=== PATIENT | male | born 1975 | race Two or more races ===

== ENCOUNTER 2016-11-12 13:13 | Inpatient (IN) | payer MEDICAID ==
[~2016-11-12] VITALS: Ht 167.6 cm; Wt 62.6 kg
[2016-11-12] MEDS ORDERED: SODIUM CHLORIDE 0.9% 1,000 ML IV ONE ×2 (13:49→17:00)
[2016-11-12] MEDS ORDERED: THIAMINE HCL 100 MG in SODIUM CHLORIDE 0.9% 49 ML IV ONE (14:00)
[2016-11-12] MEDS ORDERED: LORAZEPAM 2MG/ML CPJ IV ONE ×2 (14:00→21:00)
[2016-11-12 14:29] LABS: INR 1.1; PROTHROMBIN TIME 11.3 sec (9.4-11.6)
[2016-11-12 14:31] LABS: AMMONIA 91 uMol/L (<32)
[2016-11-12 14:37] LABS: CARBON DIOXIDE 16 mEq/L (21-32); CHLORIDE 104 mEq/L (98-107); ETHANOL BLOOD < 10 mg/dL; TROPONIN I < 0.02 ng/mL (0.00-0.04)
[2016-11-12 14:57] LABS: CARBAMAZEPINE < 0.5 ug/mL (4-12); PHENOBARBITAL < 2.1 ug/mL (15.0-40.0)
[2016-11-12 15:05] LABS: BASOPHILS % 2.4 % (0.0-2.0); EOSINOPHILS % 0.2 % (0.0-5.0); HEMATOCRIT. 41.2 % (42.0-52.0); HEMOGLOBIN. 13.3 g/dL (14.0-18.0); LYMPHOCYTES % 12.1 % (20.0-50.0); MEAN CORPUSCULAR HEMOGLOBIN 31.1 pg (28.0-32.0); MEAN CORPUSCULAR VOLUME 96.5 fL (80.0-94.0); MEAN PLATELET VOLUME 7.8 fl (7.4-10.4); MONOCYTES % 6.5 % (2.0-8.0); NEUTROPHILS % 78.8 % (40.0-76.0); PLATELET 262 x1000/uL (130-400); RED BLOOD CELL COUNT 4.28 mill/uL (4.7-6.1); RED CELL DISTRIBUTION WIDTH 15.1 % (11.6-14.6)
[2016-11-12 16:37] LABS: CLARITY URINE CLEAR (CLEAR); COLOR URINE YELLOW (YELLOW); GLUCOSE URINE NEGATIVE (NEGATIVE); KETONES URINE NEGATIVE (NEGATIVE); LEUKOCYTE ESTERASE URINE NEGATIVE (NEGATIVE); NITRITE URINE NEGATIVE (NEGATIVE); OCCULT BLOOD URINE 1+ (NEGATIVE); PROTEIN URINE 2+ (NEGATIVE); SPECIFIC GRAVITY URINE 1.022 (1.005-1.030); UROBILINOGEN URINE 0.2 E.U./dL (0.2-1.0)
[2016-11-12 16:49] LABS: *AMPHETAMINES SCREEN URINE NEGATIVE (NEGATIVE); *BARBITURATES SCREEN URINE NEGATIVE (NEGATIVE); *BENZODIAZEPINES SCREEN URINE NEGATIVE (NEGATIVE); *COCAINE SCREEN URINE NEGATIVE (NEGATIVE); CANNABINOID URINE SCREEN NEGATIVE (NEGATIVE); METHADONE URINE SCREEN NEGATIVE (NEGATIVE); OPIATES URINE SCREEN NEGATIVE (NEGATIVE); PHENCYCLIDINE URINE SCREEN NEGATIVE (NEGATIVE)
[2016-11-12] MEDS ORDERED: LACTULOSE 20G/30ML UDC PO ONE (17:00)
[2016-11-12] MEDS ORDERED: SODIUM CHLORIDE 0.9% 1,000 ML IV SCH (18:51)
[2016-11-12] MEDS ORDERED: IBUPROFEN 600MG TABLET PO PRN (19:00)
[2016-11-12] MEDS ORDERED: MAGNESIUM/ALUMINUM HYDROXIDE/SIMETHICONE 30ML UDC PO PRN (19:15)
[2016-11-12] MEDS ORDERED: NA PHOS,M-B/NA PHOS,DI-BA ENEMA 118ML PR PRN (19:15)
[2016-11-12] MEDS ORDERED: DOCUSATE SODIUM 100MG CAPSULE PO PRN (19:15)
[2016-11-12] MEDS ORDERED: ONDANSETRON HCL 4MG/2ML VIAL IV PRN (19:15)
[2016-11-12] MEDS ORDERED: GUAIFENESIN 200MG/10ML SUGAR FREE UDC PO PRN (19:15)
[2016-11-12] MEDS ORDERED: KETOROLAC 15MG/ML VIAL IV PRN (19:15)
[2016-11-12] MEDS ORDERED: CLONIDINE 0.1MG TABLET PO PRN (19:15)
[2016-11-12] MEDS ORDERED: ACETAMINOPHEN 325MG TABLET PO PRN (19:15)
[2016-11-12] MEDS ORDERED: NITROGLYCERIN 0.4MG TABLET SL SL PRN (19:15)
[2016-11-12] MEDS ORDERED: IPRATROPIUM/ALBUTEROL 0.5-3(2.5)MG/3ML NEB INH PRN (19:15)
[2016-11-12] MEDS: LACTULOSE 20G/30ML UDC PO SCH (22:30)
[2016-11-12] MEDS ORDERED: FAMOTIDINE 20MG/2ML VIAL IV NR (23:45)
[2016-11-12] MEDS ORDERED: LACTULOSE 20G/30ML UDC PO NR (23:45)
[2016-11-12] MEDS ORDERED: RIFAXIMIN 550 MG TABLET PO NR (23:45)
[2016-11-13] MEDS: LACTULOSE 20G/30ML UDC PO SCH ×3 (03:58→13:17)
[2016-11-13 04:00] VITALS: BP 166/76
[2016-11-13 04:30] VITALS: BP 166/76
[2016-11-13 05:40] VITALS: BP 180/80
[2016-11-13 07:50] LABS: AMMONIA 50 uMol/L (<32)
[2016-11-13 08:00] VITALS: BP 187/79
[2016-11-13 08:03] LABS: CARBON DIOXIDE 27 mEq/L (21-32); CHLORIDE 103 mEq/L (98-107)
[2016-11-13] MEDS ORDERED: FAMOTIDINE 20MG/2ML VIAL IV SCH (09:00)
[2016-11-13] MEDS ORDERED: RIFAXIMIN 550 MG TABLET PO SCH (09:00)
[2016-11-13 12:00] VITALS: BP 189/77
[2016-11-13 13:51] VITALS: BP 114/69
== END 2016-11-13 14:55 | disposition home or self-care (01) | DRG 279 ==
LOC: ER 14:24 → 5EST 18:52 → ENRESERV 11-13 01:47
PROVIDERS: ADMIT Internal Medicine; ATTEND Internal Medicine
DX: K72.00 Acute and subacute hepatic failure without coma (principal); D64.9 Anemia, unspecified; F10.20 Alcohol dependence, uncomplicated; K70.30 Alcoholic cirrhosis of liver without ascites; K70.0 Alcoholic fatty liver
CPT/HCPCS: 36415; 70450; 76705; 80053; 80156; 80165; 80184; 80185; 80305; 81001; 82140; 82962; 83036; 84484; 85025; 85610; 93005; 93970; 96374; 96375; 99285; G0482; J2060; J3411; J3490; J7030

== ENCOUNTER 2017-03-08 21:50 | Emergency (ER) | payer MEDICAID, OTHER ==
[~2017-03-08] VITALS: Ht 160 cm; Wt 73.0 kg
[2017-03-08] MEDS ORDERED: CLONIDINE 0.1MG TABLET PO ONE (22:15)
[2017-03-08] MEDS ORDERED: SODIUM CHLORIDE 0.9% 1,000 ML IV ONE (22:45)
[2017-03-08 22:56] LABS: HEMATOCRIT. 38.5 % (42.0-52.0); LYMPHOCYTES % 26.5 % (20.0-50.0); MEAN CORPUSCULAR HEMOGLOBIN 30.9 pg (28.0-32.0); MEAN CORPUSCULAR VOLUME 91.4 fL (80.0-94.0); MEAN PLATELET VOLUME 7.2 fl (7.4-10.4); MONOCYTES % 9.8 % (2.0-8.0); NEUTROPHILS % 59.7 % (40.0-76.0); PLATELET 175 x1000/uL (130-400); RED BLOOD CELL COUNT 4.21 mill/uL (4.7-6.1)
[2017-03-08 23:01] LABS: CHLORIDE 107 mEq/L (98-107)
[2017-03-08 23:03] LABS: PROTHROMBIN TIME 10.7 sec (9.4-11.6)
[2017-03-08 23:10] LABS: CARBON DIOXIDE 24 mEq/L (21-32); ETHANOL BLOOD 44 mg/dL
[2017-03-08 23:39] LABS: CLARITY URINE CLEAR (CLEAR); COLOR URINE YELLOW (YELLOW); KETONES URINE NEGATIVE (NEGATIVE); LEUKOCYTE ESTERASE URINE NEGATIVE (NEGATIVE); NITRITE URINE NEGATIVE (NEGATIVE); OCCULT BLOOD URINE NEGATIVE (NEGATIVE); PROTEIN URINE NEGATIVE (NEGATIVE); SPECIFIC GRAVITY URINE 1.012 (1.005-1.030); UROBILINOGEN URINE 0.2 E.U./dL (0.2-1.0)
[2017-03-09 00:10] LABS: *AMPHETAMINES SCREEN URINE NEGATIVE (NEGATIVE); *BARBITURATES SCREEN URINE NEGATIVE (NEGATIVE); *BENZODIAZEPINES SCREEN URINE NEGATIVE (NEGATIVE); *COCAINE SCREEN URINE NEGATIVE (NEGATIVE); CANNABINOID URINE SCREEN NEGATIVE (NEGATIVE); METHADONE URINE SCREEN NEGATIVE (NEGATIVE); OPIATES URINE SCREEN NEGATIVE (NEGATIVE); PHENCYCLIDINE URINE SCREEN NEGATIVE (NEGATIVE)
[2017-03-09] MEDS ORDERED: CHLORDIAZEPOXIDE 25MG CAPSULE PO ONE (00:30)
[2017-03-09 02:29] VITALS: BP 193/125
[2017-03-09 02:44] LABS: AMMONIA 45 uMol/L (<32)
[2017-03-09] MEDS ORDERED: LABETALOL HCL 20MG/4ML CARPUJECT IV ONE (02:45)
[2017-03-09] MEDS ORDERED: MAGNESIUM/ALUMINUM HYDROXIDE/SIMETHICONE 30ML UDC PO ONE (04:30)
== END 2017-03-09 05:00 | disposition home or self-care (01) ==
LOC: ER 21:54
DX: I16.0 Hypertensive urgency (principal); I10 Essential (primary) hypertension; R53.1 Weakness; I25.2 Old myocardial infarction; R00.2 Palpitations
CPT/HCPCS: 36415; 71045; 80053; 80305; 81003; 82140; 84484; 85025; 85610; 93005; 96360; 96361; 99285; G0482; J3490; Z7610; J7030